=== PATIENT | female | born 1970 | race African-American/Black ===

== ENCOUNTER 2023-07-17 11:03 | Emergency (ER) | payer MEDICAID ==
[~2023-07-17] VITALS: Ht 170.2 cm; Wt 64.4 kg
[2023-07-17 11:12] VITALS: TEMP 98.7; O2SAT 100
[2023-07-17 11:45] VITALS: BP 138/76; PULSE 84; RESP 16
[2023-07-17] MEDS ORDERED: KETOROLAC 30MG/ML VIAL IM ONE (11:45)
[2023-07-17] MEDS ORDERED: IBUP-2029 MT (11:58)
== END 2023-07-17 12:51 | disposition home or self-care (01) ==
LOC: ER 11:03
DX: S00.83XA Contusion of other part of head, initial encounter (principal); Z88.0 Allergy status to penicillin; Z98.890 Other specified postprocedural states; W18.39XA Other fall on same level, initial encounter; Y93.89 Activity, other specified; Y92.89 Other specified places as the place of occurrence of the external cause; Y99.8 Other external cause status
CPT/HCPCS: 99283; 81025; 96372; J1885